=== PATIENT | female | born 1975 | race Caucasian/White ===

== ENCOUNTER → 2020-10-12 11:04 | Outpatient (BNVA) | payer BC, SELFPAY | PROVIDERS: Family Provider Internal Medicine; Visit Provider Podiatrist Foot & Ankle Surgery | DX: M21.612 Bunion of left foot (principal) | CPT/HCPCS: 73630 ==

== ENCOUNTER 2021-05-02 09:44 | Outpatient (CLI) | payer BC, SELFPAY ==
[2021-05-02 10:20] LABS: D Dimer <= 0.27 ug/mIFEU (0-0.59)
== END 2021-05-02 09:45 | disposition home or self-care (01) ==
LOC: LAB 09:46
PROVIDERS: Visit Provider Nurse Practitioner
DX: R00.2 Palpitations (principal)
CPT/HCPCS: 85378

== ENCOUNTER 2022-04-17 08:13 | Outpatient (CLI) | payer BC, SELFPAY ==
--- NOTE | 2022-04-17 08:29 | CT_ITS ---
WS: [id number] CT CHEST WITHOUT INTRAVENOUS CONTRAST HISTORY: LUNG NODULE TECHNIQUE: Contiguous 5 mm axial imaging performed on the thorax. Coronal and sagittal reformats are submitted. All CT scans at [facility] use at least one of these dose optimization techniques: automated exposure control; mA and/or kV adjustment per patient size (includes targeted exams where dose is matched to clinical indication); or iterative reconstruction. CONTRAST: None DLP: 266.74 mGy.cm COMPARISON: No studies available of the chest. Lungs and central airway: Lungs are well-aerated. No lobar collapse or atelectasis. 4 mm noncalcified nodule at the LEFT apex. Micronodule periphery LEFT upper lobe, image 18 of series 3. No additional masses or nodules. No pneumonia. No bronchiectasis. No honeycombing. No endobronchial lesions. Pleura: Normal. No pleural effusion. Heart and pericardium: Normal size heart with no pericardial effusion. Mediastinum and johnathon: No mediastinum or hilar adenopathy. Vessels: Normal size aortic and pulmonary artery. No coronary artery calcifications. Chest wall and lower neck: No soft tissue masses. Upper abdomen: Very small hiatal hernia. Nonenhanced imaging through the liver is negative. No adrena l mass. Osseous structures: No destructive process. CT/CT chest wo con [id number] IMPRESSION: 1. Noncalcified 4 mm nodule at the LEFT apex. Additional micronodule periphery LEFT upper lobe. As per the Fleischner criteria no routine follow-up is necess leanne for low risk individual. For high risk individual optional CT at 12 months. 2. History of pulmonary nodule was provided. There are no prior studies availa ble which described a nodule or indicate the location of this nodule. Doubtful the nodules in the LEFT upper lobe would be visible radiographically. If these imaging studies become available comparison an addendum can be submitted.
== END 2022-04-17 08:14 | disposition home or self-care (01) ==
PROVIDERS: PCP Internal Medicine; Visit Provider Internal Medicine
DX: R91.1 Solitary pulmonary nodule (principal)
CPT/HCPCS: 71250

== ENCOUNTER → 2022-12-24 10:30 | Outpatient (BNVA) | payer BC, SELFPAY | PROVIDERS: PCP Internal Medicine; Visit Provider Podiatrist Foot & Ankle Surgery | DX: M79.671 Pain in right foot (principal) | CPT/HCPCS: 73630 ==

== ENCOUNTER → 2024-08-22 13:54 | Outpatient (BNVA) | payer BC, SELFPAY | PROVIDERS: PCP Family Medicine; Visit Provider Podiatrist Foot & Ankle Surgery | DX: M79.671 Pain in right foot (principal); M79.672 Pain in left foot; M19.172 Post-traumatic osteoarthritis, left ankle and foot; M21.612 Bunion of left foot; M21.611 Bunion of right foot; M20.41 Other hammer toe(s) (acquired), right foot | CPT/HCPCS: 73630 ==

== ENCOUNTER 2025-02-21 16:55 | Emergency (ER) | payer BC, SELFPAY ==
[2025-02-21 17:02] VITALS: BP 130/71; PULSE 75; RESP 17; TEMP 36.6; O2SAT 97; BMI 27.6
--- OUTSIDE RECORDS SUMMARY | 2025-02-21 17:05 | XMS_ITS | Encounter Summary ---
Author Organization [employer] [facility] Address [address] [place] [address] Care Team Providers Care Licensed Nuclear Control Room Operator Name Role Phone Blount, Jonn Adhikariiel Primary Care Provide r Encounter Details Date Type Department Care Team (Late st Contact Info) Description 02/14/2025 External Device Data ST[facility] ABSTRACTION Provider, Abstract NO ADDRESS ON FILE Social History Tobacco Use Types Packs/Day Years Used Date Smoking Tobacco: Former Passive Smoke Exposure: Past Smokeless Tobacco: Never Alcohol Use Standard Drinks/Week Comments Yes 0 (1 standard drink = 0.6 oz pur e alcohol) rarely [facility] Utilities Answer Date Recorded In the past 12 months has [facility], gas, oil, or water RECESS. threatened to shut off services in your home? No 06/22/2023 Feeling Safe Answer Date Recorded Within the last year, have y ou been afraid of your partner or ex-partner? No 06/22/2023 Within the last year, have y ou been humiliated or emotionally abused in other ways by your partner or ex-partner? No Within the last year, have y ou been kicked, hit, slapped, or otherwise physically hurt by your partner or ex-partner? No 06/22/2023 Within the last year, have y ou been raped or forced to have any kind of sexual activity by your partner or ex-partner? No 06/22/2023 Social Connections Answer Date Recorded In a typical week, how many times do you talk on the telephone with family, friends, or neighbors? Never 06/22/2023 How often do you get togethe r with friends or relatives? Never 06/22/2023 How often do you attend chur ch or mu-ism services? More than 4 times per year 06/22/2023 Do you belong to any clubs o r organizations such as yazidism groups, unions, fraternal or athletic groups, or school groups? Yes 06/22/2023 How often do you attend meet ings of the clubs or organizations you belong to? More than 4 times per year 06/22/2023 Are you , , di vorced, , never , or living with a partner? 06/22/2023 Financial Resource Strain Answer Date R ecorded How hard is it for you to pa y for the very basics like food, housing, medical care, and heating? Not hard at all 06/22/2023 Food Insecurity Answer Date Recorded In the past 12 months, have you worried that your food would run out before you had money to buy more? Never true 06/22/2023 In the past 12 months, did y ou run out of food and didn't have money to buy more? Never true 06/22/2023 Transportation Needs Answer Date Record ed In the past 12 months, has l ack of transportation kept you from medical appointments or from getting medications? No 06/01 In the past 12 months, has l ack of transportation kept you from meetings, work, or from getting things needed for daily living? No 06/22/2023 Housing Stability Answer Date Recorded In the last 12 months, was t here a time when you were not able to pay the mortgage or rent on time? No 06/22/2023 Number of Times Moved in the Last Year Not on fi le 06/22/2023 Unstable Housing in the Last Year Not on file 06/22/2023 Feeling Safe Answer Date Recorded Do you worry about feeling s afe and happy with the people in your life? No 07/19/2024 Food Insecurity Answer Date Recorded Do you find you are eating l ess than you should because you can t pay for food? No 07/19/2024 Transportation Needs Answer Date Record ed Have you gone without health care because you didn t have a way to get there? Or worry about transportation for future doctor visits, bean picker machine operator medication, etc.? No 2024 Housing Stability Answer Date Recorded Do you worry you won t have a steady place to sleep or struggle to pay rent or mortgage? No 07/19/2024 Utility Needs Answer Date Recorded Do you have difficulty payin g for utility costs (electric, water or gas bills)? No 07/19/2024 Medication Needs Answer Date Recorded Have you skipped taking medi cation due to cost or worry you can t afford new medications? No 07/19/2024 Feeling Safe Answer Date Recorded Are you in a relationship wi th someone who hurts you emotionally and/or physically? No 12/05/2024 Comments No Sex and Gender Information Value Date Recorded Sex Assigned at Not on file Legal Sex Female 6:33 AM ASPHALT HEATER TENDER Gender Identity Not on file Sexual Orientation Not on file documented as of this encounter Plan of Treatment Not on file documented as of this encounter Visit Diagnoses Not on filedocumented in this encounter Care Teams Licensed Nuclear Control Room Operator Relationship Specialty Start Date End Date Jonn Blount DO [address] [address] PCP - General 06/11/20 documented as of this encounter
--- OUTSIDE RECORDS SUMMARY | 2025-02-21 17:05 | XMS_ITS | Encounter Summary ---
Author Organization [facility] Address [address] [place] [address] Care Team Providers Care Compressed Gas Equipment Mechanic Name Role Phone BlountJonn DO Primary Care Provide r Reason for Referral * Outpatient Services (Routine) - Closed Specialty Diagnoses / Procedures Referred By Contestella t Referred To Contact Diagnoses Visit for screening mammogram Procedures MAMMO DIGITAL SCREEN BILAT Dorys Jackson MD [address] [address] Phone: tel: fax: Referral ID Status Reason Start Date Expiration Date Visits Re quested Visits Authorized [id number] Closed 03/07/2015 04/06/2016 1 1 ROOM LATHE OPERATOR Encounter Details Date Type Department Care Team (Late st Contact Info) Description 03/07/2015 Ancillary Orders [facility] Pre-Registration [place] CALL TO MAKE APPOINTMENT ONLY [address] [place] [address] Dorys Jackson MD [address] [facility] [address] [place] [address] Visit for screening mammogram (Primary Dx) Social History Tobacco Use Types Packs/Day Years Used Date Smoking Tobacco: Former Cigarettes Alcohol Use Standard Drinks/Week Comments Yes 0 (1 standard drink = 0.6 oz pur e alcohol) rare Comments No Sex and Gender Information Value Date Recorded Sex Assigned at Not on file Legal Sex Female 1:21 PM TOOL ROOM LATHE OPERATOR Gender Identity Not on file Sexual Orientation Not on file documented as of this encounter Plan of Treatment Not on file documented as of this encounter Results * MAMMO DIGITAL SCREEN BILAT (04/03/2015 2:27 PM TOOL ROOM LATHE OPERATOR) Anatomical Region Laterality Modality Breast Bilateral Mammography 04/03/2015 2:27 PM TOOL ROOM LATHE OPERATOR Addenda Addendum by Daylin Duron MD on 04/18/2015 5:11 PM TOOL ROOM LATHE OPERATOR ADDENDUM REPORT We have received the patient's prior study of 04/29/2010 and comparison is made with the screening exam of 04/03/2015. There does appear to be increased nodular density laterally in the upper outer quadrant and patient is requested to return for a true lateral projection, possible additional views, possible ultrasound. On the left, there appears to be developing density centrally on the CC projection and a spot magnification view is recommended as well as a true lateral projection, for further evaluation. The nodule superimposing the pectoralis muscle on the left is stable. IMPRESSION: Patient needs to return for additional views bilaterally. [id number] Narrative 04/04/2015 2:53 PM TOOL ROOM LATHE OPERATOR Screening Mammogram: 04/03/2015 Bilateral craniocaudal and oblique views show heterogeneously dense tissue which is nodular and asymmetrical. Prior exam is from [place], but it is not yet here for comparison. No suspicious calcifications are seen. No discrete abnormality is seen on the right. On the left MLO view projecting over the pectoral muscle, there is a round nodule probably representing a low-lying lymph node. This will require comparison to the outside exams before a final report is issued. This digital mammogram was also analyzed by the Computer Aided Detection System (CAD), [employer], Version 8.3. CONCLUSION: I would recommend the outside exams be obtained for comparison. If those do not become available in 2 weeks, I would recommend the patient return for left axillary tail view and left medial to lateral view and possible left ultrasound. [id number] Procedure Note Meghan Quiroga MD / Daylin Duron MD - 04/18/2015 Screening Mammogram: 04/03/2015 Bilateral craniocaudal and oblique views show heterogeneously dense tissue which is nodular and asymmetrical. Prior exam is from [place], but it is not yet here for comparison. No suspicious calcifications are seen. No discrete abnormality is seen on the right. On the left MLO view projecting over the pectoral muscle, there is a round nodule probably representing a low-lying lymph node. This will require comparison to the outside exams before a final report is issued. This digital mammogram was also analyzed by the Computer Aided Detection System (CAD), [employer], Version 8.3. CONCLUSION: I would recommend the outside exams be obtained for comparison. If thosedo not become available in 2 weeks, I would recommend the patient return for left axillary tail view and left medial to lateral view and possible left ultrasound. [id number] Dorys Jackson MD MAMMO ORDERABLES Edited Result - Final documented in this encounter Visit Diagnoses Diagnosis Visit for screening mammogram- Primary Other screening mammogram Visit for screening mammogram Other screening mammogram documented in this encounter Care Teams Compressed Gas Equipment Mechanic Relationship Specialty Start Date End Date Jonn Blount DO [address] [address] PCP - General Internal Medicine 02/14/15 documented as of this encounter
--- OUTSIDE RECORDS SUMMARY | 2025-02-21 17:05 | XMS_ITS | Encounter Summary ---
Author Organization [facility] Address [address] [place] [address] Care Team Providers Care Corrosion Control Technician Name Role Phone Jonn Blount DO Primary Care Provide r Reason for Referral * Outpatient Services (Routine) - Closed Specialty Diagnoses / Procedures Referred By Contac t Referred To Contact Radiology Diagnoses Inconclusive mammography Procedures MAMMO DIGITAL DIAG BILAT MAMMO DIGITAL DIAG UNI LEFT Dorys Jackson MD [address] [facility] [address] [place] [address] Phone: tel: fax: [facility] [address] [facility] [address] [place] [address] Phone: tel: fax: Referral ID Status Reason Start Date Expiration Date Visits Requested Visits Authorized [id number] Closed Performing Department To Schedule (SGF) 04/19/2015 05/19/2016 1 1 K CHIMNEY SUPERVISOR Encounter Details Date Type Department Care Team (Late st Contact Info) Description 04/19/2015 Ancillary Orders [facility] [address] [facility] [address] [place] [address] Dorys Jackson MD [address] [facility] [address] [place] [id number] Inconclusive mammography (Primary Dx) Social History Tobacco Use Types Packs/Day Years Used Date Smoking Tobacco: Former Cigarettes Alcohol Use Standard Drinks/Week Comments Yes 0 (1 standard drink = 0.6 oz pur e alcohol) rare Comments No Sex and Gender Information Value Date Recorded Sex Assigned at Not on file Legal Sex Female 1:21 PM BRICK CHIMNEY SUPERVISOR Gender Identity Not on file Sexual Orientation Not on file documented as of this encounter Plan of Treatment Not on file documented as of this encounter Results * MAMMO DIGITAL DIAG BILAT (04/19/2015 10:37 AM BRICK CHIMNEY SUPERVISOR) Anatomical Region Laterality Modality Breast Bilateral Mammography 04/19/2015 10:3 8 AM BRICK CHIMNEY SUPERVISOR Impressions 04/19/2015 7:47 PM BRICK CHIMNEY SUPERVISOR IMPRESSION: Bilateral additional views and directed bilateral breast ultrasound performed today. The patient has a 34 mm simple cyst at the 10 o'clock position on the right. This is asymptomatic. No additional intervention is recommended. No suspicious findings were identified on the left. The patient has a few subcentimeter cysts noted on ultrasound. Patient is denying any complaints. Routine yearly screening exams are recommended. Patient received the result and recommendation letter. [id number] Narrative 04/19/2015 7:47 PM BRICK CHIMNEY SUPERVISOR REASON FOR EXAM: The patient is returning for further evaluation bilaterally as requested following screening study of 04/03/2015. IMAGING PERFORMED: Bilateral true lateral projections and left CC and left magnified CC views were obtained. COMPARISON(S): Only previous exam of 04/29/2010. TISSUE COMPOSITION: Heterogeneously dense. FAMILY HX.-BREAST Ca: Mother and maternal grandmother. MAMMOGRAPHIC FINDINGS: RIGHT BREAST: The patient was suspected of having increasing nodular density in the upper outer quadrant. True lateral projection was obtained. There continues to be suggestion of a nodule in this vicinity, however it is obscured with the overlying dense breast tissue. Further evaluation sonographically is recommended. LEFT BREAST: There appear to be a developing density in the central portion of left breast best identified in the CC projection. The magnified view obtained today disperses the tissue nicely and no suspicious findings were identified, however when comparison is made with the prior study, there was subtle suggestion of an interval change, therefore further evaluation sonographically is recommended. BILATERAL BREAST ULTRASOUND: Sonographic evaluation was carried out on the right and at the 10 o'clock position 7 cm from the nipple, there is a simple cyst which is measuring 13.6 x 33.5 x 34.0 mm. This is accounting for the nodularity noted on the recent mammogram. No suspicious findings were identified. Scanning was then carried out on the left from the 12 to 2 o'clock position as well as the 4-6 o'clock location. A few tiny cysts were identified at the 2 o'clock position and at the 4 o'clock position a small cyst was noted. No suspicious findings were identified. PHYSICAL EXAM: On physical exam, no suspicious palpable lumps were identified. us Dorys Jackson MD MAMMO ORDERABLES Final Result documented in this encounter Visit Diagnoses Diagnosis Inconclusive mammography Inconclusive mammogram Inconclusive mammography- Primary Inconclusive mammogram documented in this encounter Care Teams Corrosion Control Technician Relationship Specialty Start Date End Date Jonn Blount DO [address] [id number] PCP - General Internal Medicine 02/14/15 documented as of this encounter
--- OUTSIDE RECORDS SUMMARY | 2025-02-21 17:05 | XMS_ITS | Encounter Summary ---
Author Organization [facility] Address [address] [place] [address] Care Team Providers Care Hat Liner Name Role Phone Jonn Blount DO Primary Care Provide r Encounter Details Date Type Department Care Team (Late st Contact Info) Description 11/04/2017 Ancillary Orders [facility] [address] [facility] [address] [place] [address] Ranjana Stevenson NP [address] [address] Family history of breast cancer in mother - [facility] lifetime risk 30% Social History Tobacco Use Types Packs/Day Years Used Date Smoking Tobacco: Former Cigarettes Smokeless Tobacco: Never Alcohol Use Standard Drinks/Week Comments Yes 0 (1 standard drink = 0.6 oz pur e alcohol) rare Comments No Sex and Gender Information Value Date Recorded Sex Assigned at Not on file Legal Sex Female 1:21 PM LCPC Gender Identity Not on file Sexual Orientation Not on file documented as of this encounter Plan of Treatment Not on file documented as of this encounter Results * MAMMO PRIOR STUDY (04/29/2010 6:25 AM LCPC) Narrative 11/04/2017 6:21 AM CDT This exam was auto finalized to allow images to be scanned to PACS. us Ranjana Stevenson NP DIAGNOSTIC IMAGING ORDERABLE S Final Result documented in this encounter Visit Diagnoses Diagnosis Family history of breast cancer in mother - [facility] lifetime risk 30% Family history of malignant neoplasm of breast Family history of breast cancer in mother - [facility] lifetime risk 30% Family history of malignant neoplasm of breast documented in this encounter Care Teams Hat Liner Relationship Specialty Start Date End Date Jonn Blount DO [address] [address] PCP - General Internal Medicine 02/14/15 documented as of this encounter
--- OUTSIDE RECORDS SUMMARY | 2025-02-21 17:05 | XMS_ITS | Encounter Summary ---
Author Organization [facility] Address [address] [place] [address] Care Team Providers Care Tax Preparer Name Role Phone Jonn Blount DO Primary Care Provide r Encounter Details Date Type Department Care Team (Late st Contact Info) Description 11/03/2018 Ancillary Orders [facility] Pre-Registration [place] CALL TO MAKE APPOINTMENT ONLY [address] [place] [address] Ranjana Stevenson, PATIENT CARE ASSOCIATE [address] [address] Social History Tobacco Use Types Packs/Day Years Used Date Smoking Tobacco: Former Cigarettes Smokeless Tobacco: Never Alcohol Use Standard Drinks/Week Comments Yes 0 (1 standard drink = 0.6 oz pur e alcohol) rare Comments No Sex and Gender Information Value Date Recorded Sex Assigned at Not on file Legal Sex Female 1:21 PM SPECIAL EDUCATION INCLUSION TEACHER Gender Identity Not on file Sexual Orientation Not on file documented as of this encounter Plan of Treatment Not on file documented as of this encounter Visit Diagnoses Not on filedocumented in this encounter Care Teams Tax Preparer Relationship Specialty Start Date End Date Jonn Blount DO [address] [address] PCP - General Internal Medicine 02/14/15 documented as of this encounter
--- OUTSIDE RECORDS SUMMARY | 2025-02-21 17:05 | XMS_ITS | Clinical Summary ---
Author Organization [facility] Address [address] [place] [address] Care Team Providers Care Rn Operating Room Name Role Phone Jonn Blount DO Primary Care Provide r Allergies Active Allergy Reactions Criticality Noted Date Comments Bupropion Hcl Hives High 02/13/2015 Medications Phentermine 30 mg Capsule Take 35 mg by mouth daily. Only takes half of her 35 mg. daily Active acetaminophen (TYLENOL) 325 mg tablet Take 325 mg by mouth. Active ibuprofen (MOTRIN) 600 mg tablet Take 1 Tablet (600 mg) by mouth every 6 hours. 30 Tablet 12/05/2024 Active Active Problems Problem Noted Date Diagnosed Date Postoperative follow-up 12/23/2024 History of endometrial hyperplasia 12/05/2024 Irregular menses 12/05/2024 Primary osteoarthritis of left foot 09/23/2023 Hallux abducto valgus, left 09/23/2023 Metatarsus primus varus of left foot 09/23/2023 Pronation of both feet 09/23/2023 Acute upper respiratory infection, unspecified 0 04/23/2022 Breast lump on right side at 9 o'clock position 12/17/2021 Complex endometrial hyperplasia without atypia 0 04/15/2021 Family history of breast can cer in mother - SalimaJorinav lifetime risk 30% 04/22/2016 Resolved Problems Problem Noted Date Diagnosed Date Resolved Date Vaginal odor 12/17/2021 07/19/2024 Menorrhagia with irregular cycle 03/07/2015 06/19/2022 Encounters Date Type Department Care Team Description 02/14/2025 External Device Data STL ABSTRACTION Provider, Abstract 01/04/2025 External Device Data STL ABSTRACTION Provider, Abstract 12/28/2024 External Device Data ST[facility] ABSTRACTION Provider, Abstract 12/23/2024 3:10 PM CDT Office Visit [facility] [address] [place] [address] Louise Turner MD Breast cancer screening by mammogram (Primary Dx); Postoperative follow-up 12/21/2024 External Device Data STL ABSTRACTION Provider, Abstract 12/20/2024 External Device Data STL ABSTRACTION Provider, Abstract 12/05/2024 12:44 PM CDT Anesthesia Event [facility] [place] [address] [address] Allan Browning MD Bilyeu, Lisa, CRNA 12/05/2024 11:03 AM CDT - 12/05/2024 11:45 AM CDT Surgery [facility] [place] [address] [address] Louise Turner MD HYSTEROSCOPY WITH DILATATION AND CURETTAGE 12/05/2024 9:36 AM CDT - 12/05/2024 3:32 PM CDT Hospital Encounter [facility] [place] [address] [address] Louise Turner MD History of endometrial hyperplasia Discharge Disposition: Home or Self Care 12/02/2024 Travel from Last 3 Months Immunizations Immunization Administration Dates Next Due ([employer])(12 YR UP) COVID-19 VACCINE - EMERGENCY USE AUTHORIZATION, MRNA, [id number](PF) 30 MCG/0.3 ML IM SUSP 04/27/2020,03/30/2020 Family History Medical History Relation Name Comments Healthy Brother Healthy Father Other Maternal Grandfather liver d isease r/t alcoholism Breast Cancer Maternal Grandmother Brandie Joyce Cancer Maternal Grandmother Brandie Joyce uterine Ovarian Cancer Maternal Grandmother Brandie Joyce Breast Cancer Mother Lupe Black DCIS and another type Heart Disease Mother Lupe Black cause d by chemo medication Other Mother Lupe Black uterin e polyp Thyroid Disease Mother Lupe Black and paternal aunt Cancer Paternal Aunt 1 Jacqueline Uterine Cancer Paternal Aunt 1 Jacqueline Uterine or Endometrial Cancer, Not Including Cervical Paternal Aunt 1 Jacqueline endometrial Thyroid Disease Paternal Aunt 2 Jacqueline Ruiz hypothyro idism, meds daily Heart Disease Paternal Grandfather Ayo Ruiz fatal heart attack 72 yoa Healthy Paternal Grandmother Jacqueline Ruiz Uterine or Endometrial Cancer, Not Including Cervical Paternal Grandmother Jacqueline Ruiz 40-50's Healthy Sister 1 Schuylar Thyroid Disease Sister 1 Schuylar hypothyroidi sm Healthy Sister 2 Diabetes Sister 3 Bernadette T1D, Heart Disease Sister 3 Bernadette caused by T1D Kidney Disease Sister 3 Bernadette caused by T1D Thyroid Disease Sister 3 Bernadette parathyroid due to T1D Healthy Son 1 Healthy Son 2 Colon Cancer Neg Hx Relation Name Status Comments Brother Father Alive Maternal Grandfather Maternal Grandmother Brandie Joyce Mother Lupe Black Paternal Aunt 1 Jacqueline Paternal Aunt 2 Jacqueline Ruiz Paternal Grandfather Ayo Ruiz Paternal Grandmother Jacqueline Ruiz Sister 1 Schuylar Sister 2 Alive Sister 3 Bernadette Son 1 Alive Son 2 Alive Social History Tobacco Use Types Packs/Day Years Used Date Smoking Tobacco: Former Passive Smoke Exposure: Past Smokeless Tobacco: Never Tobacco Cessation:Counseling Given: Yes Alcohol Use Standard Drinks/Week Comments Yes 0 (1 standard drink = 0.6 oz pur e alcohol) rarely [facility] Utilities Answer Date Recorded In the past 12 months has [facility] [employer], [employer], or water Bambisa threatened to shut off services in your [...] often do you attend chur ch or voodoo services? 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 Gender Identity Not on file Sexual Orientation Not on file Last Filed Vital Signs Vital Sign Reading Time Taken Comments Blood Pressure 120/76 12/23/2024 3:22 PM CDT Pulse 72 12/05/2024 3:00 PM CDT Temperature 36.7 C (98 F) 12/05/2024 1:42 PM CDT Respiratory Rate 18 12/05/2024 3:00 PM CDT Oxygen Saturation 100% 12/05/2024 3:00 PM CDT Inhaled Oxygen Concentration - - Weight 62.6 kg (138 lb) 12/23/2024 3:22 PM CDT Height 154.9 cm (5' 1 ) 12/23/2024 3:22 PM CDT Body Mass Index 26.07 12/23/2024 3:22 PM CDT Plan of Treatment Health Maintenance Due Date Last Done Comments HEPATITIS B VACCINES (1 of 3 - 19+ 3-dose series) 1993 COLORECTAL SCREENING 2019 Colorectal Cancer Screening 2019 FIT-DNA Q 3 years 2019 FIT/FOBT Q 1 year 2019 Flex Sig/CT Colonography Q 5 years 2019 DTAP/TDAP/TD VACCINES (2 - T d or Tdap) 12/08/2022 12/08/2012 ZOSTER VACCINE (1 of 2) 2024 INFLUENZA VACCINE (#1) 2024 COVID-19 Vaccine (3 - 2024-2 6 season) 2024 04/27/2020, 03/30/2020 PAP SMEAR 06/19/2025 06/19/2022, 11/01, 11/21/2019, Additional history exists BREAST CANCER SCREENING 09/21/2025 09/22/19, 09/21/2023, 12/17/2021, Additional history exists Pre-Diabetes and Diabetes Screening 06/21/2026 06/22/2023 CERVICAL CANCER SCREENING 06/20/2027 HPV/Cotest (21-29) 06/20/2027 06/19/2022, 0 11/21/2019, 05/25/2017, Additional history exists HPV/Cotest (30-65) 06/20/2027 06/19/2022, 0 11/21/2019, 05/25/2017, Additional history exists Procedures Procedure Name Priority Date/Time Associated Diagnosis Comments TELEMETRY REPORT 12/07/2024 10:1 5 AM CDT PROCEDURE PHOTOGRAPHS 12/07/2024 10:15 AM CDT PATHOLOGY Pathology 12/05/2024 1:03 PM CDT Irregular menses History of endometrial hyperplasia W[place] ANES INSERT SUPRAGLOTTIC AIRWAY Routine 12/05/2024 12:51 PM CDT POC , URINE Routine 12/05/2024 11:23 AM CDT W[place] HYSTEROSCOPY BX ENDOMETRIUM&/POLYPC W/WO D&C 12/05/2024 11:03 AM CDT Irregular menses History of endometrial hyperplasia MAMMO 3D RADHA SCREEN BILAT W OR WO CAD Routine 09/21/2024 4:16 PM CDT Breast cancer screening by mammogram HEMOGLOBIN A1C Routine 06/22/2023 3:51 PM CDT Well woman exam with routine gynecological exam CERV/VAG CYTO AGE BASED SCREEN PAP Routine 06/19/2022 1:54 PM CDT Encounter for gynecological examination without abnormal finding from Last 3 Months or Most Recently Relevant to Health Maintenance Results * PROCEDURE PHOTOGRAPHS (12/07/2024 10:15 AM CDT) us Provider Scanning PROCEDURE/MINOR SURGICAL ORDER RUSSELL Final Result * TELEMETRY REPORT (12/07/2024 10:15 AM CDT) us Provider Scanning ECG ORDERABLES Final Result * PATHOLOGY (12/05/2024 1:03 PM CDT) CASE REPORT Surgical Pathology Report Case: [id number] Authorizing Provider: Louise Turner MD Collected: 12/05/2024 01:03 PM Ordering Location: [facility] E Received: 12/05/2024 01:58 PM [place] Pathologist: Irina Bright MD Specimen: Endometrium 9:48 AM CDT [facility] FINAL DIAGNOSIS A. Endometrium, curetting - Predominantly detached strips of benign endometrial/endocervic al glands with small intact fragments of quiescent endometrium and endocervical mucosa - No endometrial hyperplasia, atypia, or malignancy Irina Bright MD [id number] 9:48 AM CDT [facility] at 0948 CDT GROSS DESCRIPTION A. Received in formalin labeled Lu -endometrium curette are multiple fragments of tissue, 3.0 x 2.5 x 0.2 cm in aggregate. The specimen is submitted in toto in A1. Grossed by: Zaira Villanueva MS, PA (ASCP)CM 9:48 AM CDT [facility] OPERATIVE PROCEDURE 1: HYSTEROSCOPY WITH DILATATION AND CURETTAGE 9:48 AM CDT [facility] CLINICAL INFORMATION N92.6-Irregular menses Z87.42-History of endometrial hyperplasia 9:48 AM CDT [facility] COMMENT The Bensata-activated dictation system may have been used in the creation of this report. Inherent to this system is the possibility of errors in syntax, grammar, punctuation, or other areas that could impact interpretation. If there are interpretive questions about the report, please contact the performing pathologist. Unless gross only is specified in the diagnosis, the microscopic examination substantiates the above cited diagnosis. The performance characteristics of all immunohistochemical stains cited in this report (if any) were determined by the [facility] of [facility] in compliance with CLIA'88 regulations. Some of these tests rely on the use of analyte specific reagents and are subject to specific labeling requirements by the FDA. All controls show appropriate reactivity. This testing was developed by the [facility] of [facility]. It has not been cleared or approved by the FDA. The FDA has determined that such clearance or approval is not necessary. 9:48 AM CDT [facility] Tissue ENDOMETRIAL STRUCTURE / Unknown Collection / Unknown 12/05/2024 1:03 PM CDT 12/05/2024 1:58 PM CDT Louise Turner MD PATHOLOGY/CYTOLOGY ORDERA BLES Final Result [facility] # [id number] [address] [place] [id number] * [place] ANES INSERT SUPRAGLOTTIC AIRWAY (12/05/2024 12:51 PM CDT) Narrative Alisha Rivas CRNA - 12/05/2024 12:51 PM CDT Alisha Rivas CRNA 12/05/2024 12:56 PM Airway Date/Time: 12/05/2024 12:51 PM Location: OR Plan: routine intubation Patient Identity Confirmed by: Verbally with patient and armband Airway: not difficult Staffing Performed: ARNIE/CAA Authorized by: Allan Browning MD Performed by: Alisha Rivas CRNA Indications and Patient Condition: Indications for Airway Management: Anesthesia Sedation Level: general anesthesia Preoxygenated: yes Patient Position: Sniffing Mask Difficulty Assessment: 0 - not attempted Plan to extubate at end of case: Yes Final Airway Details: Final Airway Type: Supraglottic airway Final Supraglottic Airway: LMA Lubricant used: Yes LMA size: 3 Tube secured with: Tape Placement Verified by: auscultation, end tidal CO2 and chest rise Number of Attempts at Approach: 1 Additional Procedure Information: atraumatic and dentition unchanged Allan Browning MD PROCEDURE/MINOR SURGICAL ORDERAB LES Final Result * POC , URINE (12/05/2024 11:23 AM CDT) HCG QUAL URINE Negative Negative 12/05/2024 11:23 AM CDT [facility] Urine 12/05/2024 11:2 3 AM CDT 12/05/2024 11:20 AM CDT Narrative [facility] - 12/05/2024 11:23 AM CDT Positive : Result is greater than or equal to 25 mIU/mL Negative: Result is less than 25 mIU/mL Invalid: Result is borderline or indeterminate,send to lab for serum test methodology. us Louise Turner MD POINT OF CARE TESTING Fin al Result [facility] CLIA # [id number] [address] [place] [address] [place] [address] * MAMMO 3D RADHA SCREEN BILAT W OR WO CAD (09/21/2024 4:16 PM CDT) Anatomical Region Laterality Modality Breast Bilateral Mammography Impressions 09/23/2024 6:51 PM CDT : No mammographic evidence of malignancy. BI-RADS ASSESSMENT: 1 - Negative RECOMMENDATION: Routine annual screening mammography. Narrative 09/23/2024 6:51 PM CDT EXAM: MAMMO SCRN BILAT 3D RADHA W OR WO CAD INDICATION: Screening COMPARISON: 09/21/2023 MAMMO 3D RADHA SCREEN BILAT W OR WO CAD, 12/17/2021 MAMMO DIAG BILAT 3D RADHA W OR WO CAD, 02/28/2019 MAMMO SCRN BILAT 3D RADHA W OR WO CAD, 10/08/2017 MAMMO SCRN BILAT 3D RADHA W OR WO CAD, and 07/08/2016 MAMMO SCREEN BILAT W OR WO CAD BREAST COMPOSITION: The breasts are heterogeneously dense, which may obscure small masses. FINDINGS: RIGHT BREAST: There are no suspicious masses, calcifications, or areas of architectural distortion. LEFT BREAST: There are no suspicious masses, calcifications, or areas of architectural distortion. Louise Turner MD MAMMO ORDERABLES Final Re sult * HEMOGLOBIN A1C (06/22/2023 3:51 PM CDT) HEMOGLOBIN A1C 5.5 <5.7 % of total Hgb [facility] Comment: For the purpose of screening for the presence of diabetes: <5.7% Consistent with the absence of diabetes 5.7-6.4% Consistent with increased risk for diabetes (prediabetes) > or =6.5% Consistent with diabetes This assay result is consistent with a decreased risk of diabetes. Currently, no consensus exists regarding use of hemoglobin A1c for diagnosis of diabetes in children. According to [place] Diabetes Association (ADA) guidelines, hemoglobin A1c <7.0% represents optimal control in non- diabetic patients. Different metrics may apply to specific patient populations. Standards of Medical Care in Diabetes(ADA). ESTIMATED AVERAGE GLUCOSE (MG/DL) 111 mg/dL Dr[facility] [facility] ESTIMATED AVERAGE GLUCOSE (MMOL/L) 6.2 mmol/L [facility] [facility] Comment: This test was performed on the Darshana leisa c503 platform. Effective 05/18/23, a change in test platforms from the Wilhelm [employer] to the Darshana leisa c503 may have shifted HbA1c results compared to historical results. Based on laboratory validation testing conducted at [facility], the Darshana platform relative to the Wilhelm platform had an average increase in HbA1c value of < or = 0.3%. This difference is within accepted variability established by the National Glycohemoglobin Standardization Program. Note that not all individuals will have had a shift in their results and direct comparisons between historical and current results for testing conducted on different platforms is not recommended. FASTING:NO FASTING: NO Test Performed at: [facility] [address] [address] Shanita De Leon MD Blood 06/22/2023 3:51 PM CDT 06/22/2023 3:51 PM CDT Vangie Hicks NATURAL GAS TREATING UNIT OPERATOR CHEMISTRY ORDERABLES F inal Result [facility] [phone] [facility] [address] [address] * CERV/VAG CYTO AGE BASED SCREEN PAP (06/19/2022 1:54 PM CDT) COMMENT (PAP): [facility] Comment: This order for age-based cervical cancer and STI screening follows ACOG guidelines(PB 168, 140, QYJ328). See individual assays for performing site location. CLINICAL INFORMATION [facility] Comment:HEALTHY LAST MENSTRUAL PERIOD [place] Comment:03/25/22 PREV PAP: [facility] Comment:None given PREV BX: [facility] Comment:None given SOURCE [facility] Comment:Endocervix ADEQUACY: [facility] Comment: Satisfactory for evaluation. Endocervical/transformation zone component present. PAP INTERP [facility] Comment: Negative for intraepithelial lesion or malignancy. Reactive cellular changes associated with repair COMMENT (PAP TEST) [facility] Comment: This case could not be evaluated with computer assisted technology. The slide was manually screened according to routine procedures. PERSON INVESTIGATOR: [facility] Comment: BES, CT(ASCP) CT screening location: [place] [address] [place] [address] PATHOLOGIST [facility] Comment: Gillian Sol M.D. Board Certified in Anatomic Pathology, Clinical Pathology and Cytopathology, Specializing in Urologic Pathology [phone] (electronic signature) EXPLANATORY NOTE [facility] Comment: EXPLANATORY NOTE: The Pap is a screening test for cervical cancer. It is not a diagnostic test and is subject to false negative and false positive results. It is most reliable when a satisfactory sample, regularly obtained, is submitted with relevant clinical findings and history, and when the Pap result is evaluated along with historic and current clinical information. HPV E6/E7 Not Detected Not Detected [facility] Comment: Methodology: Manufacturing Assistant-Mediated Amplification This assay detects E6/E7 viral messenger RNA (mRNA) from 14 high-risk HPV types (16,18,31,33,35,39,45,51,52,56,58,59,66,68). Cervical sources are required for HPV testing. If a vaginal source from a patient who has had a total hysterectomy with removal of cervix was submitted, please contact the testing laboratory for alternative testing options. For additional information, please refer to http://education.Echoing Green/faq/FXL450y0 (This link if provided for information/ educational purposes only.) Test Performed at: [address] [address] Marco JAY [facility] SWAB OF ENDOCERVIX / Unknown 06/19/2022 1:54 PM CDT 06/20/2022 8:03 AM CDT Louise Turner MD PATHOLOGY/CYTOLOGY ORDERA BLE Final Result [facility] [phone] [address] from Last 3 Months or Most Recently Relevant to Health Maintenance Insurance [employer] Advance Directives For more information, please contact: [phone] * Full Code (Latest Code Status on File) Date Activated Date Inactivated Comments 12/05/2024 1:10 PM 12/05/2024 5:43 PM * Full Code Date Activated Date Inactivated Comments 12/05/2024 10:57 AM 12/05/2024 1:10 PM * Full Code Date Activated Date Inactivated Comments 12/05/2024 10:54 AM 12/05/2024 10:57 AM * Full Code Date Activated Date Inactivated Comments 06/03/2021 11:05 AM 06/03/2021 2:39 PM * Full Code Date Activated Date Inactivated Comments 06/03/2021 8:51 AM 06/03/2021 11:04 AM Care Teams Rn Operating Room Relationship Specialty Start Date End Date Jonn Blount DO [address] [address] PCP - General 06/11/20
--- OUTSIDE RECORDS SUMMARY | 2025-02-21 17:05 | XMS_ITS | Patient Health Record ---
Author Organization [facility] Address [address] [place] [address] Care Team Providers Care Associate Marketing Manager Name Role Phone Jonn Blount DO Primary Care Provider Felicity Arce, Ponder Unavailable [phone] Allergies Allergen (clinical drug ingredient) Drug/Non Drug Allergy documented on EMR Reaction Allergy Type Onset Date Status Wellbutrin hives Drug Allergy Active Reason For Referral No Information Medications Medication SIG (Take, Route, Frequency, Duration) Notes Start Date End Date Status Multivitamin - Tablet 1 tablet Orally On a day Active Iron As needed Not-Taking Social History Tobacco Use: Social History Observation Description Date Details (start date - stop date) Former Smoker NA - NA Social History Drugs/Alcohol: Social Info Question Answer Notes Alcohol Screen (Audit-C) Did you have a drink containing alcohol in the past year? Yes How often did you have a drink containing alcohol in the past year? Monthly or less (1 point) How many drinks did you have on a typical day when you were drinking in the past year? 1 or 2 drinks (0 point) Points 1 Interpretation Negative Caffeine Intake: 2-3 cups per day Tobacco Use: Social Info Question Answer Notes xTobacco Use/Smoking Are you a former smoker Section Notes: occasional alcohol caffeine use occasional alcohol caffeine use occasional alcohol caffeine use former smoker occasional alcohol caffeine use Problems Problem Type SNOMED Code ICD Code Onset Dates Problem Status W/U Status Risk Notes Problem Palpitations (69461239) Palpitations (R00.2) Active confirmed Problem Elevated blood pressure reading without diagnosis of hypertension (468624097) Elevated blood pressure (not hypertension) (R03.0) Active confirmed Problem Multiple premature ventricular complexes (disorder) (676374990) PVC's (premature ventricular contractions) (I49.3) Active confirmed Plan Of Treatment No Information Insurance Providers Payer Name Payer Address Payer Phone Subscriber Number Group Number Insured Name Patient Relationship to Insured Coverage Start Date Coverage End Date [place] [address] [place] [phone] [id number] EVELIA PHILIP Self - patient is the insured 9 Medical (General) History Medical History History ICD Code palpitations covid vax 03/22 04/22 covid positive 03/08/21, 04/21/2022 Surgical History Surgery Date(Month/Year) D&C with hysterscopy Hospitalization History Reason Date(Month/Year) surgery hx
--- OUTSIDE RECORDS SUMMARY | 2025-02-21 17:05 | XMS_ITS | Encounter Summary ---
Author Organization [facility] Address [address] [place] [address] Care Team Providers Care Forensic Science Technician Name Role Phone Jonn Blount DO Primary Care Provide r Reason for Referral * Outpatient Services (Routine) - Closed Specialty Diagnoses / Procedures Referred By Contac t Referred To Contact Radiology Diagnoses Inconclusive mammography Procedures MAMMO BREAST US BILAT LTD MAMMO BREAST US LEFT LTD Dorys Jackson MD [email or web address] [facility] [address] [place] [address] Phone: tel: fax: [facility] [address] [facility]ITAL[facility]olar[facility] Wireless[facility] [address] [place] [address] Phone: tel: fax: Referral ID Status Reason Start Date Expiration Date Visits Requested Visits Authorized [id number] Closed Performing Department To Schedule (SGF) 04/19/2015 05/19/2016 1 1 VERY AGENT Encounter Details Date Type Department Care Team (Late st Contact Info) Description 04/05/2015 Ancillary Orders [facility] [address] [employer] [address] [place] [address] Dorys Jackson MD [address] [facility] [address] [place] [id number] Inconclusive mammography (Primary Dx) Social History Tobacco Use Types Packs/Day Years Used Date Smoking Tobacco: Former Cigarettes Alcohol Use Standard Drinks/Week Comments Yes 0 (1 standard drink = 0.6 oz pur e alcohol) rare Comments No Sex and Gender Information Value Date Recorded Sex Assigned at Not on file Legal Sex Female 1:21 PM RECOVERY AGENT Gender Identity Not on file Sexual Orientation Not on file documented as of this encounter Plan of Treatment Not on file documented as of this encounter Results * MAMMO BREAST US [employer] (04/19/2015 11:07 AM RECOVERY AGENT) Anatomical Region Laterality Modality Bilateral Ultrasound 04/19/2015 11:0 7 AM RECOVERY AGENT Impressions 04/19/2015 7:47 PM RECOVERY AGENT IMPRESSION: Bilateral additional views and directed bilateral [...] Patient received the result and recommendation letter. [id number] Narrative 04/19/2015 7:47 PM RECOVERY AGENT REASON FOR EXAM: The patient is returning [...] in this encounter Visit Diagnoses Diagnosis Inconclusive mammography- Primary Inconclusive mammogram Inconclusive mammography Inconclusive mammogram documented in this encounter Care Teams Forensic Science Technician Relationship Specialty Start Date End Date Jonn Blount DO [address] [phone] PCP - General Internal Medicine 02/14/15 documented as of this encounter
--- OUTSIDE RECORDS SUMMARY | 2025-02-21 17:05 | XMS_ITS | Clinical Summary ---
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 Name Role Phone BlountJonniel Primary Care Provide r Allergies Active Allergy Reactions Criticality Noted Date Comments Bupropion Hcl Hives High 02/13/2015 Medications No known medications Active Problems Problem Noted Date Diagnosed Date Family history of breast can cer in mother - Scar lifetime risk 30% 04/22/2016 Resolved Problems Problem Noted Date Diagnosed Date Resolved Date Heavy menstrual bleeding 03/07/2015 Family History Medical History Relation Name Comments Healthy Father Breast Cancer Maternal Grandmother Cancer Maternal Grandmother uterine Breast Cancer Mother positive respo nses- see media tab- 50s Other Mother uterine polyp Thyroid Disease Mother Breast Cancer Other pat gr aunt Cancer Other pat gr aunt cancer- reprodu ctive tract Thyroid Disease Paternal Aunt 1 Uterine Cancer Paternal Aunt 2 Healthy Son 1 Healthy Son 2 Colon Cancer Neg Hx Ovarian Cancer Neg Hx Relation Name Status Comments Father Alive Maternal Grandmother Mother Other pat gr aunt Paternal Aunt 1 Paternal Aunt 2 Son 1 Alive Son 2 Alive Social History Tobacco Use Types Packs/Day Years Used Date Smoking Tobacco: Former Cigarettes Smokeless Tobacco: Never Tobacco Cessation:Counseling Given: Yes Alcohol Use Standard Drinks/Week Comments Yes 0 (1 standard drink = 0.6 oz pur e alcohol) rare Comments No Sex and Gender Information Value Date Recorded Sex Assigned at Not on file Legal Sex Female 1:21 PM 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 Gender Identity Not on file Sexual Orientation Not on file Last Filed Vital Signs Vital Sign Reading Time Taken Comments Blood Pressure 128/80 11/21/2019 1:55 PM CDT Pulse 49 01/24/2019 10:57 AM 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 Temperature - - Respiratory Rate - - Oxygen Saturation - - Inhaled Oxygen Concentration - - Weight 70.3 kg (155 lb) 11/21/2019 1:55 PM CDT Height 156.8 cm (5' 1.73 ) 11/21/2019 1:55 PM CD T Body Mass Index 28.6 11/21/2019 1:55 PM CDT Plan of Treatment Health Maintenance Due Date Last Done Comments DTAP/TDAP/TD VACCINES (1 - Tdap) 1993 HEPATITIS B VACCINES (1 of 3 - 19+ 3-dose series) 1993 COLORECTAL SCREENING 2019 Colorectal Cancer Screening 2019 FIT-DNA Q 3 years 2019 FIT/FOBT Q 1 year 2019 Flex Sig/CT Colonography Q 5 years 2019 BREAST CANCER SCREENING 07/31/2021 08/01/19, 02/28/2019, 10/08/2017, Additional history exists PAP SMEAR 11/20/2022 11/21/2019, /07/2017, 03/07/2015 ZOSTER VACCINE (1 of 2) 2024 INFLUENZA VACCINE (#1) 2024 CERVICAL CANCER SCREENING 11/20/2024 HPV/Cotest (21-29) 11/20/2024 11/21/2019, 0 05/25/2017, 03/07/2015 HPV/Cotest (30-65) 11/20/2024 11/21/2019, 0 05/25/2017, 03/07/2015 Procedures Procedure Name Priority Date/Time Associated Diagnosis Comments MAMMO 3D RADHA SCREEN BILAT W OR WO CAD Routine 07/31/2020 1:37 PM CDT Breast cancer screening CERV/VAG CYTO SCREEN PAP RLFX HPV Routine 11/21/2019 4:00 PM CDT Cervical cancer screening from Last 3 Months or Most Recently Relevant to Health Maintenance Results * MAMMO SCRN BILAT 3D RADHA W OR WO CAD (07/31/2020 1:37 PM CDT) Anatomical Region Laterality Modality Breast Bilateral Mammography Narrative 07/31/2020 2:45 PM CDT Bilateral Digital Mammogram with CAD and 3D Tomography Reason for Exam: Screening Comparison: Compared to: 02/28/2019 MAMMO SCRN BILAT 3D RADHA W OR WO CAD, 10/08/2017 MAMMO SCRN BILAT 3D RADHA W OR WO CAD, 07/08/2016 MAMMO SCREEN BILAT W OR WO CAD, and 04/19/2015 MAMMO DIGITAL DIAG BILAT Technique: 3D MLO and CC digital tomosynthesis images were acquired and synthesized 2D images (C view) were generated. This digital mammogram was also analyzed by the Computer Aided Detection System CAD). Breast Composition: The breasts are heterogeneously dense, which may obscure small masses. There are no suspicious masses, areas of architectural distortions, or microcalcifications to suggest malignancy. No significant new findings since the prior mammogram(s). Consider referral to genetic counselor for complete risk assessment is recommended. Supplemental breast cancer screening with Breast MRI if lifetime risk of developing breast cancer is found to be 20% or greater (see risk assessment). Dorys Jackson MD MAMMO ORDERABLES Final Result * CERV/VAG CYTO SCREEN PAP RLFX HPV (11/21/2019 4:00 PM CDT) CLINICAL INFORMATION HEALTHY 11/25/2019 10:22 AM CDT [facility] LAST MENSTRUAL PERIOD 2019111211/25/2019 10:22 AM CDT [facility] PREV PAP: 05/25/17 NIL 11/25/2019 10:22 AM CDT [facility] PREV BX: INFORMATION NOT PROVIDED 11/25/2019 10:22 AM CDT [facility] SOURCE Endocervix 11/25/2019 10:22 AM CDT [facility] ADEQUACY: SEE COMMENT 11/25/2019 10:22 AM CDT [facility] Comment: Satisfactory for evaluation. Endocervical/transformation zone component present. PAP INTERP Negative for intraepithelial lesion or malignancy. 11/25/2019 10:22 AM CDT [facility] COMMENT This Pap test has been evaluated with computer assisted technology. 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 It is not a diagnostic test and is subject to false negative and false positive results. It is most reliable when a satisfactory sample, regularly obtained, is submitted with relevant clinical findings and history, and when the Pap result is evaluated along with historic and current clinical information. Genital SWAB OF ENDOCERVIX / Unknown Collection / Unknown 11/21/2019 4:00 PM CDT 11/22/2019 8:35 AM CDT Narrative [facility] - 11/25/2019 10:22 AM CDT Performing Organization Information: Site ID: SL Name: [facility] [facility] Address: [facility] Administration JOHANNA Cantrell [address] Director: Shanita De Leon Dorys Jackson MD PATHOLOGY/CYTOLOGY ORDERABLES F inal Result [facility] [phone] from Last 3 Months or Most Recently Relevant to Health Maintenance Insurance [employer] Care Teams Finisher Fine Diamond Dies Relationship Specialty Start Date End Date Jonn Blount DO [address] [facility] [address] [place] [address] PCP - General Internal Medicine 02/14/15
--- OUTSIDE RECORDS SUMMARY | 2025-02-21 17:05 | XMS_ITS | Data Portability ---
Author Organization JOHANNA [facility] Raj [facility] Address [address] [address] Care Team Providers Care Detail Maker And Fitter Name Role Phone SHELL CARDONA Primary Care Provider Assessment Encounter Date Assessment Date Assessment LastModified by Organization Details LastModified Time 11/15/2024 11/15/2024 Cleansed with hibiclens and water. Vaseline gauze, non adherent and gauze applied with kerlix. Alum/foam finger splint applied for comfort/prote ction [email or web address] Not available 11/16/2024 10:21:45 Plan of Treatment Reminders Order Date Submit Date Provider Last Modified By Organization Details Last Modified Time Details Appointments None recorded. Lab lipid panel, blood 2024 025 [facility], [address] [facility], [facility] [address], [address], 09:25:35 CBC 2024 025 [facility], [address] [facility], [place], [address], 12:07:02 CMP, serum or plasma 2024 025 [facility] Lab, [address] [facility], [facility] [place], [address], 09:25:33 TSH, serum or plasma 2024 025 [facility], [address] [facility], [facility] 1, [place], [address], 08:17:[address] referral 2024 025 [email or web address] 2 [facility], [address] [facility], [place], [address], 5 16:49:56 general surgeon referral 2024 025 [email or web address] 2 Shyam Webster MD, [address] [facility], [facility] 3, [place], [address], 15:11:41 Procedures None recorded. Surgeries None recorded. Imaging None recorded. Medication Orders Bactrim DS 800 mg-160 mg tablet 2024 025 [facility] [place], [facility], [facility] [place], [address], 05:01:47 phentermine 37.5 mg tablet 2024 025 [facility] [place], [facility], [facility] [place], [address], 11:36:45 phentermine 37.5 mg tablet 2024 025 [facility], [place], [facility], [address] [place] [address], [address], 14:06:15 Patient TargetsNo targets recorded. Patient InstructionsNo instructions recorded. Reason for Referral General Surgeon Referral for Screening for malignant neoplasm of colon Referring Physician: Shell Cardona [facility], Encounter Date: 07/29/2024 County Program Technician Referral for N eoplasm of uncertain behavior of skin Referring Physician: Shell Cardona [facility], Encounter Date: 08/24/2024 Results Created Date Observation Date Name Description Value Unit Range Abnormal Flag Note LastModifiedBy Organization Detail LastModifiedTime 07/30/19 25 07/29/2024 CBC WBC 5.4 x10 4.0-10 .5 Not Available [facility] [address], [place], [address], 07/29/2024 12:07:02 07/30/19 25 07/29/2024 CBC RBC 4.69 x10 3.50-5 .50 Not Available [facility] [address], [place], [address], 07/29/2024 12:07:02 07/30/1907/29/2024 CBC HGB 13.9 g/dL 12.0-1 6.0 Not Available [facility] [address] [facility], [place], [address], 07/29/2024 12:07:02 07/30/19 25 07/29/2024 CBC HCT 42.0 % 37.0-4 7.0 Not Available [facility] [address] [facility] 1, [place], [address], 07/29/2024 12:07:02 07/30/19 25 07/29/2024 CBC MCV 89.5 fL 80.0-9 9.9 Not Available [facility] [address] [facility] 1, [place], [address], 07/29/2024 12:07:02 07/30/19 25 07/29/2024 CBC MCH 29.6 pg 27.0-3 2.0 Not Available [facility] [address] [facility] 1, [place], [address], 07/29/2024 12:07:02 07/30/19 25 07/29/2024 CBC MCHC 33.0 g/dL 32.0-3 6.0 Not Available [facility] [address] [facility] 1, [place], [address], 07/29/2024 12:07:02 07/30/19 25 07/29/2024 CBC RDW 13.0 % 11.5-1 4.5 Not Available [facility] [address] [facility] 1, [place], [address], 07/29/2024 12:07:02 07/30/19 25 07/29/2024 CBC plt 311.0 x10 140.0- 451.0 Not Available [facility] [address] [facility] 1, [place], [address], 07/29/2024 12:07:02 07/30/19 25 07/29/2024 CBC lymphocytes % 27.4 % 20.0-5 0.0 Not Available [facility] [address] [address], [place], [address], 07/29/2024 12:07:02 07/30/19 25 07/29/2024 CBC granulcytes % 60.3 % 30.0-7 0.0 Not Available [facility] [address] [facility], [place], [address], 07/29/2024 12:07:02 07/30/19 25 07/29/2024 CBC monocytes % 7.3 % 2.0-16 .0 Not Available [facility] [address] [address], [place], [address], 07/29/2024 12:07:02 07/30/19 25 07/29/2024 CBC granulcytes# 3.2 x10 Not Lakia ilable [facility] [address] [address], [place], [address], 07/29/2024 12:07:02 07/30/19 25 07/29/2024 CBC lymphocytes # 1.5 x10 Not Available [facility] [address] [place] [facility] [place] [facility], [place], [address], 07/29/2024 12:07:02 07/30/19 25 07/29/2024 CBC monocytes # 0.4 x10 Not Avai labwesley [facility] [address] [place] [address] [facility] [place] [facility], [place], [address], 07/29/2024 12:07:02 07/30/19 25 07/29/2024 TSH TSH 0.64 uIU/m L 0.49-3 .82 Not Available [facility] [address] [facility] 1, [place], [address], 07/29/2024 12:59:55 07/30/19 25 08/01/2024 CMP (FEMA LE) glucose 94.0 mg/dL 60.0-9 9.0 Not Available [facility] [address] [facility] 1, [place], [address], 08/01/2024 09:25:33 07/30/19 25 08/01/2024 CMP (FEMA LE) BUN (blood urea nitrogen) 18.0 mg/dL 10.0-2 6.0 Not Available [facility] [address] [facility], [place], [address], 08/01/2024 09:25:33 07/30/19 25 08/01/2024 CMP (FEMA LE) creatinine (serum) 0.8 mg/dL 0.4-1. 5 Not Available [facility] [address] [facility] 1, [place], [address], 08/01/2024 09:25:33 07/30/19 25 08/01/2024 CMP (FEMA LE) BUN/creatini ne ratio 22.50 ratio Not Available [facility] [address] [facility] [place] [facility], [place], [address], 08/01/2024 09:25:33 07/30/19 25 08/01/2024 CMP (FEMA LE) eGFR calculated 80.7 Not Available [facility] [address] [facility] [address], [place], [address], 08/01/2024 09:25:33 07/30/1908/01/2024 CMP (FEMA LE) total protein 6.9 g/dL 6.0-8. 5 Not Available [facility] [address] [facility], [place], [address], 08/01/2024 09:25:33 07/30/1908/01/2024 CMP (FEMA LE) total bilirubin 0.4 mg/dL 0.2-1. 3 Not Available [facility] [address] [facility] 1, [place], [address], 08/01/2024 09:25:33 07/30/1908/01/2024 CMP (FEMA LE) albumin 4.1 g/dL 3.5-5. 5 Not Available [facility] [address] [facility] 1, [place], [address], 08/01/2024 09:25:33 07/30/1908/01/2024 CMP (FEMA LE) globulin 2.8 calc Not Available [facility] [address] [facility], [place], [address], 08/01/2024 09:25:33 07/30/1908/01/2024 CMP (FEMA LE) AST (SGOT) 20.0 U/L 0.0-46 .0 Not Available [facility] [address] [facility] [address], [place], [address], 08/01/2024 09:25:33 07/30/19 25 08/01/2024 CMP (FEMA LE) altv (SGPT) 19.0 U/L 13.0-6 9.0 normal Not Available [facility] [address] [facility] 1, [place], [address], 08/01/2024 09:25:33 07/30/1908/01/2024 CMP (FEMA LE) A/G ratio 1.5 ratio Not Available [facility] [address] [place] [facility] [place] [facility], [place], [address], 08/01/2024 09:25:33 07/30/1908/01/2024 CMP (FEMA LE) ALP phos 49.0 U/L 30.0-1 40.0 normal Not Available [facility] [address] [facility] 1, [place], [address], 08/01/2024 09:25:33 07/30/19 25 08/01/2024 CMP (FEMA LE) calcium 9.2 mg/dL 8.4-10 .5 Not Available [facility] [address] [place] [address] [facility] [place] [facility], [place], [address], 08/01/2024 09:25:33 07/30/1908/01/2024 CMP (FEMA LE) sodium 137.0 mmol/ L 136.0- 145.0 Not Available [facility] [address] [facility] 1, [place], [address], 08/01/2024 09:25:33 07/30/1908/01/2024 CMP (FEMA LE) potassium 4.0 mmol/ L 3.5-5. 1 Not Available [facility] [address] [place] [address] [facility], [place], [address], 08/01/2024 09:25:33 07/30/19 25 08/01/2024 CMP (FEMA LE) chloride 105.0 mmol/ L 98.0-1 10.0 normal Not Available [facility] [address] [facility] 1, [place], [address], 08/01/2024 09:25:33 07/30/1908/01/2024 CMP (FEMA LE) C02 27.0 mmol/ L 22.0-3 1.0 Not Available [facility] [address] [facility] 1, [place], [address], 08/01/2024 09:25:33 07/30/1908/01/2024 CMP (FEMA LE) anion gap 5.0 calc Not Available [facility] [address] [facility] 1, [place], [address], 08/01/2024 09:25:33 07/30/1908/01/2024 CMP (FEMA LE) osmolality 284.7 calc Not Available [facility] [address] [facility] 1, [place], [address], 08/01/2024 09:25:33 07/30/19 25 08/01/2024 LIPID PROFI LE (FEMA LE) cholesterol 195.0 mg/dL 0.0-20 0.0 Not Available [facility] [address] [facility] 1, [place], [address], 08/01/2024 09:25:35 07/30/1908/01/2024 LIPID PROFI LE (FEMA LE) trig 89.0 mg/dL 0.0-15 0.0 Not Available [facility] [address] [facility] 1, [place], [address], 08/01/2024 09:25:35 07/30/19 25 08/01/2024 LIPID PROFI LE (FEMA LE) HDL - direct 74.0 mg/dL >40.0 Not Available [facility] [address] [facility], [place], [address], 08/01/2024 09:25:35 07/30/19 25 08/01/2024 LIPID PROFI LE (FEMA LE) VLDL - direct 17.8 mg/dL Not Available [facility] [address] [place] [address], [place], [address], 08/01/2024 09:25:35 07/30/19 25 08/01/2024 LIPID PROFI LE (FEMA LE) LDL - direct 103.2 mg/dL 0.0-13 0.0 Not Available [facility] [address] [place] [address], [place], [address], 08/01/2024 09:25:35 09/21/19 25 09/12/2024 colon oscop y proce dure (PROC ) No observ ation record ed. [email or web address] Not Available 09/21 09:47:19 Result Notes None recorded. Problems Name Problem SNOMED Code Status Onset Date Resolution Date Notes Provider Name and Address Organization Details Recorded Time Fatigue 43695991 Active 2024 Shell Cardona MD [address] [place] [address], [address], [facility] 11:42:16 Body mass index 25-29 - overweight 307834982 Active 2024 Deloris sandoval [facility].L.CAretha 13:35:16 Neoplasm of uncertain behavior of skin 05668618 Active 2024 Shell Cardona MD [address] [place] [address], [address], [facility], L.LArethaCAretha 16:45:18 Injury of left leg 7636290435203 9107 Active 2024 Shell Cardona MD [address] [place] [address], [address], [facility], L.LArethaCAretha 11:03:56 Problem Notes None recorded. Procedures Surgical History Date Name Laterality Status Provider Name and Address Organization Details Recorded Time 5 colonoscopy and biopsy of colon [facility] [place] [facility] 13:28:45 extraction of wisdom tooth completed [facility] [place] 07/29/2024 11:25:56 [facility] 11:26:32 Imaging Results None recorded. Procedure Notes None recorded. Medical Equipment None Reported. Allergies Allergen ID Allergen Name Allergen Category Reaction Reaction Severity Criticality Documentation Date Start Date Code Code System Note Provider Name and Address Organization Details Recorded Time 99353 Wellbutri n medicatio n hives Not available Not available 09/27/2022 27700 RxNorm React ion: Hives ; Comme nt: Recor ded 03/19 10:04 AM by Kaye mckeon RN, Offic e Visit ; Bryce deanna; Octavio weir ce: *; Reaso n: Drug aller gy; ; Not Available [facility] [place] [facility] 02:28:05 Medications Name Sig Start Date Stop Date Status Note LastModified by Organization Details LastModified Time meloxicam 15 mg tablet TAKE 1 TABLET BY MOUTH EVERY DAY active Not Available Not Available No t Available phentermine 37.5 mg tablet TAKE 1 TABLET BY MOUTH EVERY DAY 2024 active Not Available Not Available Not Avai lable benzonatate 100 mg capsule take 1 capsule BY MOUTH TWICE DAILY NEEDED FOR COUGH 07/29 completed Not Available Not Available Not Available amoxicillin 875 mg-potassium clavulanate 125 mg tablet TAKE 1 TABLET BY MOUTH TWICE DAILY 07/29 completed Not Available Not Available Not Available Bactrim DS 800 mg-160 mg tablet Take 1 tablet every 12 hours by oral route for 7 days. 11/29 completed Not Available Not Available Not Available Vitals Date Recorded Body weight Body mass index (BMI) Body height Body temperature Heart rate Oxygen saturation Systolic And Diastolic Provider Name and Address Organization Details Last Updated DateTime 5 92967.7 8 g 29.5 kg/m2 156.85 cm 97.4 [degF] 67 /min 98 % 120/80 mm[Hg] Raquel Solorzano [facility] 5 11:17:17 Date Recorded Body height Body mass index (BMI) Body weight Oxygen saturation Heart rate Respiratory rate Body temperature Systolic And Diastolic Provider Name and Address Organization Details Last Updated DateTime 5 156.85 cm 28 kg/m2 15773.3 2 g 99 % 70 /min 20 /min 97.1 [degF] 108/70 mm[Hg] Deloris Story [facility] 5 16:36:12 Social History Question Answer Notes LastModified by [employer] Details LastModified Time Tobacco Smoking Status Former Smoker Raquel Solorzano [facility] 07/29/2024 11:25:37 What Is Your Level Of Caffeine Consumption? Moderate [email or web address] Information not available 07/29/2024 When Did You Quit Smoking? 15+yearssinjesus lima 2001 [email or web address] Information not available 07/29/2024 What Was The Date Of Your Most Recent Tobacco Screening? 11/15/2024 [email or web address] Information not available 11/15/2024 Sex: Unknown Functional Status Question Answer Note LastModified by [employer] Details LastModified Time Do you use any illicit or recreational drugs? No [email or web address] Information not available 07/29/2024 What is your level of alcohol consumption? Occasional [email or web address] Information not available 07/29/2024 Mental Status None recorded. Family History Nothing Reported Notes:Breast Cancer: Mother, hear failure, hypothyroid, Father: Hypertension: Denied Hypertension: Father Maternal Grandmother: Diabetes Mother: Breast Cancer: Denied Paternal Grandfather: Hypertension: Denied Sister: Diabetes Aunt on father side: arthritis, endometrial cancer Sister: type 1 diabetes, pancreas and kidney transplant and both failed- at 40 Medical History Condition Response Allergies/Hayfever Y Vision or Eye Problems Y Anemia Y Arthritis Y Ear or Hearing Problems Y Chicken Pox Y Gynecological HistoryNo gynecological history recorded. Obstetrics History GPAL:G 0 P 0 0 0 0 Immunizations Vaccine Type Date Status Note Provider Nam e and Address Organization Details Recorded Time Tdap 12/08/2012 completed Not Available [facility] 08/24/2024 16:30:19 COVID-19, mRNA, LNP-S, PF, 30 mcg/0.3 mL dose 03/30/2020 completed Not Available [facility] 16:30:19 COVID-19, mRNA, LNP-S, PF, 30 mcg/0.3 mL dose 04/27/2020 completed Not Available [facility] 16:30:19 Past Encounters Encounter ID Performer Location Encounter Start Date Encounter Closed Date Diagnosis/Indication Diagnosis SNOMED-CT Code Diagnosis ICD10 Code Diagnosis IMO Codes Diagnosis Note [id number] Shell Cardona MD [facility] ([facility]) [address] [place] [address] 07/29/2024 11:09:33 08/01/2024 10:49:09 Screening for malignant neoplasm of colon 605079068 Z12.11 [id number] Will send referral to Dr. Webster for colonoscop y consult. Preventive procedure 169 819354 Z00.00 36571902 Continue with well-laurence ted diet and regular exercise. Will check routine labs. Fatigue 43046189 R53.83 6532125 Will include TSH given her fatigue and difficulty with losing weight. Hyperlipid emia screening 419867599 Z13.220 598059 Body mass index 25-29 - overweight 777399928 E66.3 531977 Discussed options for treatment and patient would like to go ahead and proceed with phentermin e today. [id number] Shell Cardona MD [facility] ([facility]) [address] [place] [phone] 08/24/2024 16:28:18 08/25/2024 08:33:36 Neoplasm of uncertain behavior of skin 79230737 D48.5 26424 Will send dermatolog y referral to help manage her skin lesions. Body mass index 25-29 - overweight 868460514 E66.3 254156 Will continue phentermin e at this time. Patient is doing well with the medication . Injury of left leg 17234 89767 8892269 S76.112A 92677106 mild to moderate strain of the left quadriceps . Continue stretches and exercises. Discussed recommende d restrictio ns. Patient may want to continue to follow-up with [facility] to continue other interventi ons to help with healing. [id number] MINDY GOOD [facility] ([facility]) [address] [place] [address] 11/15/2024 11:38:39 11/21/2024 12:44:04 Avulsion of skin 357892406 T14.8XXA 1315357 Tdap up to date. Discussed use of vaseline gauze and non adherent. Pt to keep the wound moist with the vaseline gauze for next 1 week. No gauze directly on the wound. Antibiotic started prophylact ically. F/u if you develop redness, swelling, drainage, or concerns for infection. Health Concerns Section Related Observation LastModified by Organization Detai ls LastModified Time None Recorded Concern Status LastModified by Organization Details LastModified Time None Recorded Advance Directives Directive None Recorded Payers Insurance Date Sequence Insurance Name Policy Number Policy Roth Covered Member ID Roth Member ID Guarantor Name 11/15/2024 1 [place] [id number] Yuri Lu [id number] MDT Corina Lu 11/15/2024 MELVIN HECTOR [id number] [address] Corina Lu Notes Date Note Type Note Provider Name and Address Organization Details Recorded Time 07/29/2024 text/html Annual WellnessReported by PatientSocial/Behavior al HistoryFor diet and nutrition, patient reportshealthy diet. For additional lifestyle factors, patient reportsno tobacco useandstopped drinking alcohol. For fracture risk, (dislocated toe, tore ligaments).Mental Status:For depression risk, patient reportsloss of interest in activitiesbut reportsnever feels sad, empty, or tearful,no sleep disturbances or insomnia,no agitation,no feelings of worthlessness or guilt,no thoughts of suicide, andno history of depression.Functional AbilityFor hearing, patient reportsloss of hearing: in both ears. For vision, patient reportsworse with distance(stigmatism).R OS as noted in the HPI This is a 49-year-old female comes in today to establish care. The patient was previously established with Dr. Blount. Patient states that she would like to get scheduled for colonoscopy with Dr. Webster. Patient reports that she has been tired and fatigued and has had had difficulty with losing weight. The patient is wanting routine lab work today. Patient also wants to discuss options to help with weight loss. Patient states that she watches her diet and has started to exercise daily, but she still struggles to lose some weight. Shell Cardona MD [address] [place] [address], [phone], [facility] 07/30/2024 14:54:22 08/24/2024 text/html This is a 49-year-old female that has a small lesion on the tip of her nose and a few other skin lesions that she is concerned about. Wants to see a stamp presser. Patient is doing well on phentermine and has lost approximately 9 pounds. Patient is tolerating without significant side effect and would like to continue. Patient is also having left thigh pain. The patient had a sudden onset of her pain after doing a running long jump. The patient has been given some stretches and exercises and wanted to make sure that it was not anything else that she needs to be doing or concerned about. Shell Cardona MD [address] [place] [address], [phone], [facility] 08/25/2024 11:06:11 11/15/2024 text/html Worker's Comp InitialReported by PatientROS as noted in the HPI walk in patientpatient is here today for a laceration of left pointer finger, patient cut off the tip of her finger when cutting fabric today, patient works for the [employer]. States her last tetanus vaccine was about 3-4 years ago. MINDY GOOD [address] [place], [address], [facility] 11/16/2024 10:22:46 OBGyn Episode No OBEpisode recorded.
--- NOTE | 2025-02-21 17:13 | XRR_ITS ---
PROCEDURE INFORMATION: Exam: XR Pelvis Exam date and time: 02/21/2025 5:15 PM Age: 49 years old Clinical indication: Injury or trauma; Fall; Sprain or strain; Left; Hip and pelvic region TECHNIQUE: Imaging protocol: Radiologic exam of the pelvis. Views: 1 or 2 view. COMPARISON: CR XR femur LT min 2V* [id number] 02/21/2025 5:15 PM FINDINGS: Bones/joints: Normal mineralization and alignment. No evidence of acute fracture or dislocation. Soft tissues: The soft tissues are within normal limits. XR/XR pelvis 1-2V* [id number] IMPRESSION: No evidence of acute fracture or dislocation.
--- NOTE | 2025-02-21 17:13 | XRR_ITS ---
PROCEDURE INFORMATION: Exam: XR Left Femur Exam date and time: 02/21/2025 5:15 PM Age: 49 years old Clinical indication: Injury or trauma; Fall; Sprain or strain; Thigh or upper leg; Left TECHNIQUE: Imaging protocol: Radiologic exam of the left femur. Views: 2 views. COMPARISON: CR (PELVIS, ) 02/21/2025 5:15 PM FINDINGS: Bones/joints: Normal mineralization and alignment. No evidence of acute fracture or dislocation. Soft tissues: Calcification projecting over the proximal anterior thigh musculature on the lateral view is nonspecific. XR/XR femur LT min 2V* [id number] IMPRESSION: No evidence of acute fracture or dislocation.
--- NOTE | 2025-02-21 17:15 | W.ED.EXTPRO ---
HPI - Extremity Problem General: Chief complaint: Extremity Injury, Lower Stated complaint: left hamstring pain Time Seen by Provider: 02/21/25 16:57 History of Present Illness: 49-year-old female presents emergency room with left hamstring pain. She had previously had some mild sports related injury to the right thigh it seem to be healing and she was improving today she slipped on the stairs hyperextended her leg and she is unable to bear weight. It is extremely painful. Even to extend to sit on the edge of the bed is intolerable for her. No other injuries when she fell. No previous injuries to the hip or knee. Associated symptoms: Deny chest pain or fever(s) Related Data Home Medications ?Medication ?Instructions ?Recorded ?Confirmed phentermine 37.5 mg tablet 37.5 mg PO DAILY 08/22/24 08/22/24 Previous Rx's ?Medication ?Instructions ?Recorded benzonatate 100 mg capsule 100 mg PO BID PRN cough #20 caps 02/11/24 meloxicam 15 mg tablet 15 mg PO DAILY #30 tabs 08/22/24 hydrocodone 5 mg-acetaminophen 325 1 tab PO Q6H PRN pain #14 tabs 02/21/25 mg tablet tizanidine 4 mg tablet 4 mg PO Q6H PRN muscle spasticity 02/21/25 #20 tabs Allergies Allergy/AdvReac Type Severity Reaction Status Date / Time bupropion (From Wellbutrin) Allergy Intermediate Hives Verified 08/22/24 14:10 Review of Systems Const: Denies: fever(s) or chills Card: Denies: chest pain Resp: Denies: dyspnea GI: Denies: abdominal pain Musc: Denies: back pain [facility] ED PFSH: Social History Smoking and tobacco/nicotine status: former use of tobacco/nicotine Second hand smoke exposure: No Alcohol intake: current Alcohol intake frequency: holidays/special occasions only Substance/Drug Use: never Physical Exam Const: COMMON NORMALS: no acute distress GENERAL APPEARANCE: cooperative ORIENTATION/CONSCIOUSNESS: Yes awake, Yes oriented to person, Yes oriented to place and Yes oriented to time HENMT: COMMON NORMALS: normocephalic, atraumatic and hearing grossly normal bilaterally HEAD & SCALP: normocephalic and atraumatic Resp: COMMON NORMALS: normal respiratory effort, No retractions, No use of accessory muscles and clear to auscultation bilaterally AUSCULTATION: clear to auscultation bilaterally Cardio: COMMON NORMALS: regular rate, regular rhythm and No murmurs present (Cardio) RATE: regular rate RHYTHM: regular rhythm Extremity: COMMON NORMALS: normal to inspection, capillary refill normal, no clubbing, cyanosis or edema, no calf tenderness and no pedal edema Neuro: SENSORIUM/ORIENTATION: Yes oriented to person, Yes oriented to place and Yes oriented to time Skin: COMMON NORMALS: no rashes or lesions noted GENERAL SKIN EXAM: no rashes or lesions noted Course Vital Signs: Vital signs: Vital Signs Temperature 97.8 F 02/21/25 17:02 Pulse Rate 66 02/21/25 18:56 Respiratory Rate 20 H 02/21/25 18:02 Blood Pressure 148/74 02/21/25 18:56 Pulse Oximetry 100 02/21/25 18:56 Oxygen Delivery Me thod Room Air 02/21/25 17:02 MDM - Extremity (Nontraumatic) Medical Decision Making X-ray negative for any fractures. No sign of avulsion fractures. Femur and pelvis x-rays reviewed by myself. Pain medications improved. There is no obvious deformity to the leg neurovascularly intact. Will discharge home in knee immobilizer and crutches. Follow-up with orthopedics. Medical Records I reviewed the patient's medical records. Lab Data Radiology Impressions Femur X-Ray 02/21/25 17:13 IMPRESSION: No evidence of acute fracture or dislocation. Pelvis X-Ray 02/21/25 17:13 IMPRESSION: No evidence of acute fracture or dislocation. All radiology interpretation(s) finalized by discharge Discharge Plan Discharge Patient Disposition: Home Clinical Impression: Left hamstring injury Condition: Stable Prescriptions: New tizanidine 4 mg tablet 4 mg PO Q6H PRN (Reason: muscle spasticity) Qty: 20 0RF Rx Instructions: do not exceed 3 doses per 24 hrs hydrocodone-acetaminophen 5-325 mg tablet 1 tab PO Q6H PRN (Reason: pain) Qty: 14 0RF No Action benzonatate 100 mg capsule 100 mg PO BID PRN (Reason: cough) Qty: 20 0RF phentermine 37.5 mg tablet 37.5 mg PO DAILY meloxicam 15 mg tablet 15 mg PO DAILY Qty: 30 2RF Discharge Orders: Discharge ED (Routine); Ordered 02/21/25 Ordered By: Asa Chavarria Referrals: Roberto Cardona MD [Primary Care Provider, Family Practice] Discharge Diet: Usual diet Discharge Activity: Resume usual activity Patient Instructions: Opioid Safety, Pain Management, Patient Portal & Jeffrey Instructions Activity Restrictions/Additional Instructions: [facility]. It is very important that you follow up as instructed or that you return to the Emergency Department should you have concerns or if your condition changes or worsens in any way. Emergency department visits are focused on emergent conditions, in some cases you may require further evaluation on an outpatient basis. You are seen in the emergency room with a left hamstring injury. X-rays did not show any signs of fracture avulsion fracture pelvic fracture. Recommend nonweightbearing on your left leg use crutches and knee immobilizer to assist. You can apply ice would avoid applying heat. Recommend tizanidine and hydrocodone as needed for pain. Case management make arrangements for you to follow-up with orthopedics (Please note that included in your discharge packet is information concerning opioid safety and pain management. This information is given to all patients were discharged from the ER regardless of their discharge diagnosis or the medicines they usually take or are prescribed.) Print Language: Bulgarian Coding Level of Care Code ED Tin Assorter for Yessi Benson
[2025-02-21 18:02] VITALS: RESP 20; O2SAT 100
[2025-02-21] MEDS: orphenadrine 30 mg/mL Inj 2 mL 60 MG IVP (18:02)
[2025-02-21] MEDS: morphine 4 mg/mL SDV 1 mL IVP (18:02)
[2025-02-21 18:56] VITALS: BP 148/74; PULSE 66; O2SAT 100
== END 2025-02-21 18:57 | disposition home or self-care (01) ==
PROVIDERS: Emergency Provider Family Medicine; PCP Family Medicine
DX: S76.802A Unspecified injury of other specified muscles, fascia and tendons at thigh level, left thigh, initial encounter (principal); Z87.891 Personal history of nicotine dependence; X58.XXXA Exposure to other specified factors, initial encounter
CPT/HCPCS: 72170; 73552; 96374; 96375; 99284; J1100; J1885; J2270; J2360